=== PATIENT | female | born 1980 | race African-American/Black ===

== ENCOUNTER 2018-02-15 10:47 | Emergency (ER) | payer OTHER ==
[~2018-02-15] VITALS: Ht 170.2 cm; Wt 104.3 kg
[~2018-02-15 10:47] MED LIST: HYDROCODONE-AP1 EAC6 PO; IBUPROFEN 600600 M1 PO; NORCO 5-325 TA1 EACH PO; PERCOCET 5-3251 EACH PO; SENOKOT-S1 TA1 PO; TRINESSA1 EACH
[2018-02-15] MEDS ORDERED: TRAMADOL 50 MG50 MG PO (11:59)
[2018-02-15] MEDS ORDERED: NORCO 5-325 TA1 EACH PO (12:39)
== END 2018-02-15 12:52 | disposition home or self-care (01) ==
LOC: ER 10:47
DX: M25.562 Pain in left knee (principal)